=== PATIENT | female | born 1995 | race Caucasian/White ===

== ENCOUNTER 2020-10-06 17:06 | Inpatient (IN) | payer SELFPAY, OTHER ==
[2020-10-06] VITALS (13 sets, daily range): BP systolic 98–123; BP diastolic 36–75; PULSE 67–76; RESP 8–18; TEMP 36.3–37; O2SAT 75–100; BMI 27.9
--- NOTE | 2020-10-06 | PLAC_PTH ---
PATIENT: MARTHA AMES LOC: [facility] U#:[id number] AGE/SX: ROOM: WP003 RE10/06/[address]: Dr. Loli Crystal MD : 1995 BED: 1 DIS: 10/07/2020 SPEC #: [id number] RECD: 10/06/20 22:12 STATUS: ROMULO CHAUHAN #: [id number] TRAVIS: 10/06/20 00:[address]: Loli Crystal DEPT: SURGICAL PATHOLOGY RECD BY: Manan Roque Tissues: Placenta, NOS Procedures: Surgery Specimen Level V HEADER OPERATION: Primary section PRE-OP DIAGNOSIS: Previa TISSUE SUBMITTED: Placenta MICROSCOPIC DIAGNOSIS Placenta: Placental disc - third trimester placenta (580 gm). - Focal areas of intraparenchymal hemorrhage. Membranes - no pathologic diagnosis. Umbilical cord ? three blood vessels and focal minimal acute inflammation. SJ:diamond 10/09/2020 MICROSCOPIC DESCRIPTION Slides are reviewed. GROSS DESCRIPTION SPECIMEN: PLACENTA / CLINICAL INFORMATION: A. Weight: 4.03 kg B. Gestational Age: 39 weeks C. Sex: Male PLACENTAL WEIGHT (POST FIXATION): 580 gm PLACENTAL DIMENSIONS: 20 x 17 x 4 cm PLACENTAL SHAPE: Usual ovoid PLACENTAL WEIGHT FOR GESTATIONAL AGE: Within 10-99th percentile MEMBRANES - Present A. Insertion: Marginal B. Site of rupture from edge: The membranes are fragmented and distance of rupture cannot be assessed. C. Color of membrane: Aponte-toledo D. Abnormalities: None UMBILICAL CORD - Present A. Color: [place] B. Insertion: Marginal C. Length: 27 cm D. Diameter: 1.1 cm E. Number of vessels: Three F. Abnormalities: None PLACENTAL DISC - Present A. Color of surface: [place]onte-[place] B. surface abnormalities: None C. Maternal cotyledons: Intact with minimal tears D. Attached retro placental clot: No clot E. Cut surface: Dark red and spongy F. Lesions: Sections reveal two aponte, indurated lesions measuring 1.5 and 0.5 cm in greatest dimension. G. Separate clot: Absent SECTIONS SUBMITTED: 1. Membrane roll 2. Cord, maternal end 3. Cord, end 4. Placental disc, and maternal surfaces, smaller lesion 5. Placental disc, and maternal surfaces, larger lesion 6. Placental disc, and maternal surfaces SJ:diamond 10/08/20 TC:5 CPT: 65736
[2020-10-06 17:36] LABS: Mucous, Urine 0 SEEN /hpf (<or=2+); Squamous Epithelial Cells - UA 0 SEEN /hpf (5-10); White Blood Cells 0 SEEN /hpf (0-5)
[2020-10-06 17:46] LABS: Color, Urine Yellow (Yellow); Glucose, Dipstick Normal (Normal); Ketone-Dipstick Negative (Negative); Leukocyte Esterase-Dipstick Negative /ul (Negative); Nitrite-Dipstick Negative (Negative); Occult Blood-Urine 25 /ul (Negative); Protein-Dipstick 30 mg/dl (Negative); Urine Bilirubin Dipstick Negative (Negative); Urine Clarity Clear (Clear); Urine Urobilinogen Normal (Normal)
[2020-10-06 17:47] LABS: Absolute Lymphocyte Count 1.91 X10^3/uL (0.83-4.51); Absolute Neutrophil Count 6.2 X10^3/uL (2.0-7.7); Basophil# 0.03 X10^3/uL; Basophil% 0.3 % (0-1); Eosinophil# 0.07 X10^3/uL; Eosinophils% 0.8 % (0-5); Hematocrit 31.9 % (37-47); Hemoglobin 10.9 g/dL (12.0-15.0); Lymphocyte # 1.91 X10^3/ul (0.83-4.51); Lymphocyte % 21.4 % (19-41); Mean Corp Hgb Conc 34.2 g/dL (32-36); Mean Corpuscular Hgb 30.8 pg (27.0-32.0); Mean Corpuscular Volume 90.1 fL (81-99); Monocyte# 0.68 X10^3/uL; Monocyte% 7.6 % (0-10); NRBC Flagged by Analyzer 0 % (0-5); Neutrophil % 69.3 % (47-70); POSITIVE COUNT YES; Platelet Count 157 K/mm3 (150-450); RBC Distribution Width CV 14.5 % (11.6-14.6); RBC Distribution Width SD 47.9 fl (35.1-43.9); Red Blood Count 3.54 M/mm3 (4.2-5.4); White Blood Count 8.9 K/mm3 (4.4-11.0)
[2020-10-06] MEDS: Methylergonovine 0.2 MG/ML Ampul IM (17:48)
[2020-10-06 17:56] LABS: Amphetamine Urine VISTA NEGATIVE (<1000 ng/mL); Barbiturate Urine VISTA NEGATIVE (< 200 ng/mL); Benzodiazepine Urine VISTA NEGATIVE (< 200 ng/mL); Cocaine Urine VISTA NEGATIVE (< 300 ng/mL); Ecstacy Urine VISTA NEGATIVE (< 500 ng/mL); Methadone Urine VISTA NEGATIVE (< 300 ng/mL); PCP Urine VISTA NEGATIVE (< 25 ng/mL); THC Urine VISTA NEGATIVE (< 50 ng/mL); Vista UDS pH Range 6
--- NOTE | 2020-10-06 17:57 | PCM.HP.OB ---
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 Upon initial evaluation complete placenta previa was seen with unstable lie and heart was noted to be in the 140s visually on ultrasound. Decision was made for a stat primary for previa and acute vaginal bleeding. PFSH PFSH Allergy/AdvReac Type Severity Reaction Status Date / Time No Known Allergies Allergy Verified 10/06/20 17:24 NST FHR Rate Baby A Baseline: 140 ROS Constitutional Constitutional: Reports systems reviewed and no addt'l complaints, except as documented ENT HEENT: Reports systems reviewed and no addt'l complaints, except as documented Cardiovascular Cardiovascular: Reports systems reviewed and no addt'l complaints, except as documented Respiratory/Chest Respiratory/Chest: Reports systems reviewed and no addt'l complaints, except as documented Gastrointestinal Gastrointestinal: Reports systems reviewed and no addt'l complaints, except as documented and nausea; Denies abdominal pain Genitourinary Genitourinary: Reports systems reviewed and no addt'l complaints, except as documented, contractions Details: present and frequency (regular ) and movement Details: present Musculoskeletal Musculoskeletal: Reports systems reviewed and no addt'l complaints, except as documented Integumentary Integumentary: Reports as per HPI Neurologic Neurologic: Reports systems reviewed and no addt'l complaints, except as documented Endocrine Endocrinology: Reports systems reviewed and no addt'l complaints, except as documented Physical Exam Const alert, oriented x3 and healthy appearing HEENT normocephalic and moist oral mucous membranes Head and Scalp: atraumatic Neck full ROM, no lymphadenopathy, supple and thyroid normal General: trachea midline Thyroid: thyroid normal Lymph Lymphatic: no lymphadenopathy noted Chest inspection of chest normal Resp normal respiratory effort GI Inspection: gravid Palpation: tender, guarding and rigid Narrative: Approximately at 1000 cc present in clot and blood with clot adherent to the vagina and perineum Extremity normal to inspection General Extremity: Negative for edema Skin no rashes or lesions noted Neuro deep tendon reflexes 2+ bilaterally Motor Exam: strength 5/5 throughout and clonus absent Psych mental status grossly normal Labs Labs Labs: Blood Type Pending Antibody Screen Pending Hct Pending Hgb Pending Syphilis Total Ab Pending Rubella IgG Antibody Pending Hep Bs Antigen Pending HIV 1&2 Antibody Pending Assessment & Plan (1) Complete placenta previa with hemorrhage, third trimester: (2) Acute postoperative anemia due to expected blood loss: PLAN: Admitted for stat section. Ancef 2 g given, 4 units typed and crossed. Coags and routine labs sent.
[2020-10-06] MEDS: Oxytocin 30 units/NS 500 ml 30 UNITS/500 ML IV.SOLN 167 UNITS IV (18:00)
--- NOTE | 2020-10-06 18:02 | OP.PCM_ITS ---
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 Patient was prepped with Betadine splash and draped and underwent general anesthesia. Pfannenstiel skin incision was made with the scalpel and carried through to the underlying layer of fascia with the scalpel. Fascia was nicked in the midline and the incision extended laterally. The rectus bellies were dissected off superiorly and inferiorly with out complication both sharply and bluntly. The peritoneum was entered digitally. The incision was stretched and a low transverse uterine incision was made with the scalpel. The infant's head was delivered atraumatically followed by the anterior and posterior shoulders without complication the rest of the delivered. The cord was clamped and cut and the was handed off to awaiting nurse. The placenta was delivered spontaneously immediately following and was noted to be intact and have a three-vessel cord. The uterus was exteriorized cleared of all clots and debris, and the incision was closed in a double layer closure using #1 Monocryl. The ovaries and fallopian tubes were noted to be within normal limits. The uterus was returned to the maternal abdomen and gutters were cleared of all clots and debris. The peritoneum was closed with 3-0 Monocryl in a running fashion. Gloves were changed prior to fascial closure. Fascia was closed with 0 PDS in a running fashion. Subcutaneous tissue was copiously irrigated and the skin was closed with 3-0 Monocryl in a subcuticular fashion. Mepilex dressing was applied without complication. Patient was taken to recovery in stable condition. It was discussed with the patient that based on the clinical information obtained during this encounter, combined with her history, at this time I would recommend vaginal or cesareans for future deliveries if further pregnancies are desired. Amniotic Membrane Rupture Type: Artificial Amniotic Fluid Description: Clear Cord Vessel Description: 3 Vessels Cord Entanglement: None Cord Gases: ABG and VBG Infant A Gender: Male (1 minute): 7 (5 minute): 9 Delayed Cord Clamping: No Vaginal Delivery Complication Complications: - (Hemorrhage due to placenta previa) Admit VTE Documentation VTE Present on Admission: No VTE Mechan Device Prophylaxis: SCD's Procedures Urinary/Genital [id number]: 47819 delivery only
[2020-10-06 18:05] LABS: Bacteria 1+ /hpf (None Seen); Red Blood Cells-Urine 0-5 SEEN /hpf (0-5)
[2020-10-06 18:30] LABS: Differential Comment SCANNED; Differential Indicated SCAN CRITERIA MET
--- NOTE | 2020-10-06 19:00 | NURSING ---
Ancef 2 g given in OR by Anesthesia at 1711
[2020-10-06] MEDS: Ketorolac 30 MG/ML Syringe IV (19:35)
[2020-10-06 21:00] LABS: HIV - WCH Non-Reactive (Nonreactive); Hepatitis B Surface Antigen Non-Reactive (Nonreactive); Hepatitis C Antibody Non-Reactive (Nonreactive)
[2020-10-06] MEDS: Lactated Ringers 1,000 ML 100 ML IV (21:12)
[2020-10-06 21:34] LABS: Hematocrit 29.2 % (37-47); Hemoglobin 9.8 g/dL (12.0-15.0); Mean Corp Hgb Conc 33.6 g/dL (32-36); Mean Corpuscular Hgb 30.4 pg (27.0-32.0); Mean Corpuscular Volume 90.7 fL (81-99); Mean Platelet Vol. 11.3 fl (6.2-12.0); Platelet Count 157 K/mm3 (150-450); RBC Distribution Width CV 14.6 % (11.6-14.6); RBC Distribution Width SD 47.9 fl (35.1-43.9); Red Blood Count 3.22 M/mm3 (4.2-5.4); White Blood Count 17.5 K/mm3 (4.4-11.0)
[2020-10-06 21:43] LABS: International Normalized Ratio 1.1; Prothrombin Time (Protime)PT. 13.7 SECONDS (11.7-14.9)
[2020-10-06 21:44] LABS: Partial Thromboplast Time 27.3 Seconds (24.1-36.2)
[2020-10-06 22:28] LABS: Pathology Specimen OB SEE PATHOLOGY REPORT
[2020-10-06] MEDS: Acetaminophen 500 MG Tablet 1000 MG PO (23:35)
[2020-10-07 01:08] VITALS: BP 105/51; PULSE 65; RESP 16; TEMP 36.6; O2SAT 98
[2020-10-07] MEDS: Ketorolac 30 MG/ML Syringe IV ×3 (01:13→12:28)
[2020-10-07 04:03] VITALS: BP 99/51; PULSE 65; RESP 16; TEMP 37.2; O2SAT 98
[2020-10-07 05:21] LABS: Hematocrit 26.5 % (37-47); Mean Corpuscular Hgb 30.3 pg (27.0-32.0); Mean Corpuscular Volume 89.2 fL (81-99); Mean Platelet Vol. 11.1 fl (6.2-12.0); Platelet Count 146 K/mm3 (150-450); RBC Distribution Width CV 14.6 % (11.6-14.6); RBC Distribution Width SD 47.6 fl (35.1-43.9); Red Blood Count 2.97 M/mm3 (4.2-5.4); White Blood Count 13.3 K/mm3 (4.4-11.0)
[2020-10-07] MEDS: Acetaminophen 500 MG Tablet 1000 MG PO ×3 (06:01→17:47)
[2020-10-07] MEDS: 0.9% Saline Lock 10 ML Syringe IV ×2 (06:53→12:28)
--- NOTE | 2020-10-07 07:36 | PCM.PN.OB ---
Subjective Subjective Patient doing well without complaints. Tolerating PO. UP in chair. Jeter out but has not voided yet. States pain well controlled. Breast feeding well. Denies chest pain, shortness of breath, calf pain/swelling, fevers, chills, lightheadedness. Objective Data Objective Data Vital Signs: Vital Signs Temp Pulse Resp BP Pulse Ox 98.9 F 65 16 99/51 L 98 10/07/20 04:03 10/07/20 04:03 10/07/20 04:03 10/07/20 04:03 10/07/20 04:03 Oxygen Delivery Method Room Air Weight: 163 lb Body Mass Index (BMI) 27.9 Intake & Output: Intake and Output for Last 24 Hours 10/05/20 10/06/20 10/07/20 23:59 23:59 23:59 Intake Total 1210 / 1210 1466.67 / 1466.67 Output Total 1300 / 1300 3100 / 3100 Balance -90 / -90 -1633.33 / -1633.33 Lab / Micro Data Result Diagrams: 10/07/20 05:18 Labs: Laboratory Results - last 24 hr 10/06/20 17:10: WBC 8.9, RBC 3.54 L, Hgb 10.9 L, Hct 31.9 L, MCV 90.1, MCH 30.8, MCHC 34.2, RDW Std Deviation 47.9 H, RDW Coeff of Jim 14.5, Plt Count 157, MPV 12.0, Immature Gran % (Auto) 0.600, Neut % (Auto) 69.3, Lymph % (Auto) 21.4, [place] % (Auto) 7.6, Eos % (Auto) 0.8, Baso % (Auto) 0.3, Absolute Neuts (auto) 6.2, Absolute Lymphs (auto) 1.91, Nucleated RBC % 0, Differential Comment SCANNED 10/06/20 17:10: Blood Type AB NEGATIVE, Antibody Screen NEGATIVE, Crossmatch See Detail 10/06/20 17:10: Urine Color Yellow, Urine Clarity Clear, Urine pH 6.0, Ur Specific [place] 1.020, Urine Protein 30 H, Urine Glucose (UA) Normal, Urine Ketones Negative, Urine Occult Blood 25 H, Urine Nitrite Negative, Urine Bilirubin Negative, Urine Urobilinogen Normal, Ur Leukocyte Esterase Negative, Urine RBC 0-5 SEEN, Urine WBC 0 SEEN, Ur Squamous Epith Cells 0 SEEN, Urine Bacteria 1+, Urine Mucus 0 SEEN 10/06/20 17:10: Urine Opiates Screen NEGATIVE, Urine Methadone Screen NEGATIVE, Ur Barbiturates Screen NEGATIVE, Ur Phencyclidine Scrn NEGATIVE, Ur Amphetamines Screen NEGATIVE, U Methamphetamin-MDMA NEGATIVE, U Benzodiazepines Scrn NEGATIVE, Urine Cocaine Screen NEGATIVE, U Cannabinoids Screen NEGATIVE, Ur Drug Screen Comment 10/06/20 17:10: Hep Bs Antigen Non-Reactive, Hepatitis C Antibody Non-Reactive, HIV 1&2 Antibody Non-Reactive 10/06/20 21:20: WBC 17.5 H, RBC 3.22 L, Hgb 9.8 L, Hct 29.2 L, MCV 90.7, MCH 30.4, MCHC 33.6, RDW Std Deviation 47.9 H, RDW Coeff of Jim 14.6, Plt Count 157, MPV 11.3 10/06/20 21:20: PT 13.7, INR 1.1, APTT 27.3 10/07/20 05:18: WBC 13.3 H, RBC 2.97 L, Hgb 9.0 L, Hct 26.5 L, MCV 89.2, MCH 30.3, MCHC 34.0, RDW Std Deviation 47.6 H, RDW Coeff of Jim 14.6, Plt Count 146 L, MPV 11.1 Physical Exam Const alert and oriented x3 HEENT normocephalic Eyes PERRL Neck full ROM Resp normal respiratory effort GI soft to palpation GI Narrative: FF at U. Dressing dry and intact Palpation: tender other (appropriately) Assessment & Plan (1) delivery due to maternal disorder: COMMENT: ltcs stat previa bleeding 41 [facility] repair [employer], boy (2) Acute postoperative anemia due to expected blood loss: (3) Complete placenta previa with hemorrhage, third trimester: (4) Rh negative status during : QUALIFIERS: Trimester: unspecified trimester Qualified Code(s): O26.899 - Other specified related conditions, unspecified trimester; Z67.91 - Unspecified blood type, Rh negative PLAN: s/p LTCS PPD # 1 1. routine post care 2. breast feeding- support given 3. rh negative 4. rubella pending
[2020-10-07 09:00] VITALS: BP 104/52; PULSE 69; RESP 16; TEMP 36.3
[2020-10-07 09:03] LABS: Rubella IgG Non-Reactive (Nonreactive); Syphilis Antibodies Non-reactive
[2020-10-07] MEDS: Enoxaparin 40 MG/0.4 ML Syringe SC (10:24)
[2020-10-07] MEDS: Senna/Docusate Sodium 1 Tablet PO (10:28)
[2020-10-07 12:30] VITALS: BP 111/56; PULSE 86; RESP 16; TEMP 37.1
--- NOTE | 2020-10-07 15:07 | PCM.DC ---
Discharge Instructions Diet Discharge Diet: No restrictions Activity Discharge Activity: May Not Drive (for 2 weeks or while taking narcotic pain medications.), May Shower and May Take a Tub Bath (in 7 days) May shower in (days): 0 May resume sexual activity in: 4-6 weeks Weight Bearing Status: Full weight bearing Lifting Restrictions: 20 pounds Dressing / Incision Call your doctor if your incision/area has: Continuous Slow Oozing, Sudden Increased Bleeding, Increased Pain/ Swelling, Increased Redness and Foul Smelling Discharge Call your doctor if you observe: Fever of 101 or Higher and Using more than 1 pad per hour (for 2 hours) Suture Line Care: Avoid Pulling/Pushing and Avoid Pinching/Bending Cleanse incision/area with: Soap & Water and Keep Dressing Clean & Dry Follow Up Care Please Follow Up With: Loli Crystal MD When: Call [phone] to make an appointment for an incision check in 1-2 weeks. Test Results: Test results from this visit will be discussed in further detail at your follow-up appointment, if applicable. Discharge Plan Admission Admit Date/Time: 10/06/20 17:06 Primary Reason for Your Visit: section Attending Provider: Loli Crystal Discharge Orders/Prescriptions Prescriptions: New oxycodone-acetaminophen [Endocet] 5-325 mg tablet 1 tab PO Q4H PRN (Reason: pain) 7 Days Qty: 20 RF: 0 ibuprofen [ibuprofen] 600 MG tablet 600 mg PO Q6H PRN PRN (Reason: pain) Qty: 30 RF: 0 Continued ascorbic acid (vitamin C) 25 mg Tablet PO RF: 0 omega-3 fatty acids Capsule 1,000 mg PO DAILY RF: 0 [id number] 333-133-5 mg Tablet PO RF: 0 Referrals / Follow Up: Loli Crystal MD [STAFF PHYSICIAN] - Disposition Disposition (needs filled in before D/C Order can be placed): Home, Self Care
[2020-10-07 16:00] VITALS: BP 115/64; PULSE 86; RESP 18; TEMP 36.2
[2020-10-07] MEDS: Naproxen 500 MG Tablet PO (17:47)
== END 2020-10-07 18:30 | disposition home or self-care (01) | DRG 787 ==
PROVIDERS: Admitting Provider Obstetrics & Gynecology; Visit Provider Obstetrics & Gynecology
DX: O44.13 Complete placenta previa with hemorrhage, third trimester (principal); D62 Acute posthemorrhagic anemia; Z3A.39 39 weeks gestation of pregnancy; Z37.0 Single live birth; O32.0XX0 Maternal care for unstable lie, not applicable or unspecified
CPT/HCPCS: 80307; 81001; 85025; 85027; 85610; 85730; 86703; 86762; 86780; 86803; 86850; 86900; 86901; 86920; 86922; 87340; 88307; J7120; A4216; J2405; J3490